=== PATIENT | female | born 1980 | race Caucasian/White ===

== ENCOUNTER 2016-10-19 19:13 | Observation (INO) | payer MEDICAID ==
[~2016-10-19] VITALS: Ht 165.1 cm; Wt 64.4 kg
[2016-10-19] MEDS ORDERED: MULT-1146 PO (20:11)
[2016-10-19 21:05] LABS: CLARITY URINE CLEAR (CLEAR); COLOR URINE YELLOW (YELLOW); GLUCOSE URINE NEGATIVE (NEGATIVE); KETONES URINE NEGATIVE (NEGATIVE); LEUKOCYTE ESTERASE URINE NEGATIVE (NEGATIVE); NITRITE URINE NEGATIVE (NEGATIVE); OCCULT BLOOD URINE NEGATIVE (NEGATIVE); PH URINE 7.5 (4.5-8.0); PROTEIN URINE NEGATIVE (NEGATIVE); SPECIFIC GRAVITY URINE 1.011 (1.005-1.030)
[2016-10-19] MEDS ORDERED: ACETAMINOPHEN 500MG TABLET PO ONE (22:00)
== END 2016-10-19 22:30 | disposition home or self-care (01) ==
LOC: L&D 19:13
PROVIDERS: ADMIT Specialist; ATTEND Specialist
DX: O9A.212 Injury, poisoning and certain other consequences of external causes complicating pregnancy, second trimester (principal); S50.312A Abrasion of left elbow, initial encounter; S50.311A Abrasion of right elbow, initial encounter; O26.892 Other specified pregnancy related conditions, second trimester; R52 Pain, unspecified; Z3A.23 23 weeks gestation of pregnancy; Y08.89XA Assault by other specified means, initial encounter; Y93.01 Activity, walking, marching and hiking; Y92.89 Other specified places as the place of occurrence of the external cause; Y99.8 Other external cause status
CPT/HCPCS: 76805; 81003; 99281; G0378

== ENCOUNTER 2017-02-18 06:50 | Inpatient (IN) | payer MEDICAID ==
[~2017-02-18] VITALS: Ht 165.1 cm; Wt 69.4 kg
[~2017-02-18 06:50] MED LIST: MULT-1146 PO
[2017-02-18] MEDS ORDERED: OXYTOCIN IV SCH (07:07)
[2017-02-18] MEDS ORDERED: LACTATED RINGERS 1,000 ML IV SCH ×2 (07:07→07:08)
[2017-02-18] MEDS ORDERED: LACTATED RINGERS IV SCH (07:07)
[2017-02-18] MEDS ORDERED: DEXT 5%/LR + PITOCIN 20UNITS/L 1,000 ML IV SCH ×2 (07:08→10:21)
[2017-02-18] MEDS ORDERED: MISOPROSTOL 100MCG TABLET VG SCH (07:15)
[2017-02-18] MEDS ORDERED: MISOPROSTOL 100MCG TABLET VG PRN (07:15)
[2017-02-18] MEDS ORDERED: BUTORPHANOL TARTRATE 2 MG/ML VIAL IV PRN ×2 (07:15)
[2017-02-18] MEDS ORDERED: METHYLERGONOVINE MALEATE 0.2 MG/ML IM PRN ×3 (07:15→10:30)
[2017-02-18] MEDS ORDERED: LIDOCAINE HCL 1% 20ML VIAL (Pyxis) INJ INFIL SCH ×2 (07:15)
[2017-02-18] MEDS ORDERED: NALOXONE HCL 0.4 MG/ML 1ML VIAL IM PRN ×2 (07:15)
[2017-02-18] MEDS ORDERED: CARBOPROST TROMETHAMINE 250 MCG/ML AMPUL IM PRN (07:15)
[2017-02-18] MEDS ORDERED: PENICILLIN G POTASSIUM 5 MMU in DEXT 5% WATER 100 ML IV SCH (07:30)
[2017-02-18 07:45] LABS: BASOPHILS % 0.3 % (0.0-2.0); EOSINOPHILS % 0.6 % (0.0-5.0); HEMATOCRIT. 33.5 % (36.0-48.0); HEMOGLOBIN. 10.9 g/dL (12.0-16.0); LYMPHOCYTES % 9.2 % (20.0-50.0); MEAN CORPUSCULAR HEMOGLOBIN 25.2 pg (28.0-32.0); MEAN CORPUSCULAR VOLUME 77.5 fL (81.0-99.0); MEAN PLATELET VOLUME 10.7 fl (7.4-10.4); MONOCYTES % 7.1 % (2.0-8.0); NEUTROPHILS % 82.8 % (40.0-76.0); PLATELET 87 x1000/uL (130-400); RED BLOOD CELL COUNT 4.32 mill/uL (4.2-5.4); RED CELL DISTRIBUTION WIDTH 16.7 % (11.6-14.6)
[2017-02-18 07:47] LABS: INR 0.9; PARTIAL THROMBOPLASTIN TIME 30.1 sec (23.4-31.0); PROTHROMBIN TIME 9.8 sec (9.4-11.6)
[2017-02-18 08:14] LABS: HEPATITIS B SURFACE ANTIGEN NEGATIVE; RUBELLA IGG 62.4 IU/mL (4.99-10)
[2017-02-18 08:15] LABS: GLUCOSE URINE NEGATIVE (NEGATIVE); KETONES URINE NEGATIVE (NEGATIVE); LEUKOCYTE ESTERASE URINE NEGATIVE (NEGATIVE); NITRITE URINE NEGATIVE (NEGATIVE); OCCULT BLOOD URINE NEGATIVE (NEGATIVE); PH URINE 6.5 (4.5-8.0); PROTEIN URINE NEGATIVE (NEGATIVE); SPECIFIC GRAVITY URINE 1.011 (1.005-1.030); UROBILINOGEN URINE 0.2 E.U./dL (0.2-1.0)
[2017-02-18 08:17] LABS: CLARITY URINE CLEAR (CLEAR); COLOR URINE YELLOW (YELLOW)
[2017-02-18 08:44] LABS: *AMPHETAMINES SCREEN URINE NEGATIVE (NEGATIVE); *BARBITURATES SCREEN URINE NEGATIVE (NEGATIVE); *BENZODIAZEPINES SCREEN URINE NEGATIVE (NEGATIVE); *COCAINE SCREEN URINE NEGATIVE (NEGATIVE); CANNABINOID URINE SCREEN NEGATIVE (NEGATIVE); METHADONE URINE SCREEN NEGATIVE (NEGATIVE); OPIATES URINE SCREEN NEGATIVE (NEGATIVE); PHENCYCLIDINE URINE SCREEN NEGATIVE (NEGATIVE)
[2017-02-18] MEDS ORDERED: IBUPROFEN 400MG TABLET PO PRN (10:30)
[2017-02-18] MEDS ORDERED: RHO(D) IMMUNE GLOBULIN 300 MCG/SYR IM PRN (10:30)
[2017-02-18] MEDS ORDERED: LANOLIN OINT 0.25 GM TUBE TOP PRN (10:30)
[2017-02-18 11:25] VITALS: BP 108/52
[2017-02-18] MEDS ORDERED: PENICILLIN G POTASSIUM 2.5 MMU in DEXTROSE 5% WATER 50 ML IV SCH (11:30)
[2017-02-18] MEDS: IBUPROFEN 800MG TABLET PO PRN ×2 (11:31→18:01)
[2017-02-18 11:55] VITALS: BP 114/50
[2017-02-18 12:34] LABS: HEMATOCRIT. 31.5 % (36.0-48.0); HEMOGLOBIN. 10.1 g/dL (12.0-16.0); MEAN CORPUSCULAR HEMOGLOBIN 25.2 pg (28.0-32.0); MEAN CORPUSCULAR VOLUME 78.2 fL (81.0-99.0); MEAN PLATELET VOLUME 10.9 fl (7.4-10.4); PLATELET 91 x1000/uL (130-400); RED BLOOD CELL COUNT 4.02 mill/uL (4.2-5.4); RED CELL DISTRIBUTION WIDTH 16.3 % (11.6-14.6)
[2017-02-18 13:37] LABS: PLATELET ESTIMATE DECREASED
[2017-02-18] MEDS ORDERED: INFLUENZA VIRUS VACCINE 0.5ML SYR IM ONE (20:00)
[2017-02-18 21:30] VITALS: BP 117/69
[2017-02-18] MEDS: DOCUSATE SODIUM 100MG CAPSULE PO SCH (22:35)
[2017-02-19 05:30] VITALS: BP 109/69
[2017-02-19 07:57] VITALS: BP 110/62
[2017-02-19] MEDS: PRENATAL VIT/FE FUMARATE/FA TABLET PO SCH (08:06)
[2017-02-19] MEDS: IBUPROFEN 800MG TABLET PO PRN ×2 (08:06→20:43)
[2017-02-19 16:05] VITALS: BP 94/52
[2017-02-19] MEDS ORDERED: TETANUS, DIPHTHERIA, PERTUSSIS VAC/PF 0.5ML (>7YR OLD) IM ONE (18:30)
[2017-02-19] MEDS ORDERED: INFLUENZA VIRUS VACCINE 0.5ML SYR IM ONE (18:30)
[2017-02-19 20:00] VITALS: BP 119/73
[2017-02-19] MEDS: DOCUSATE SODIUM 100MG CAPSULE PO SCH (20:17)
[2017-02-20 06:13] VITALS: BP 107/64
[2017-02-20 07:33] LABS: HEMATOCRIT 28.3 % (36.0-48.0); HEMOGLOBIN 9.3 g/dL (12.0-16.0); MEAN CORPUSCULAR HEMOGLOBIN 25.4 pg (28.0-32.0); MEAN CORPUSCULAR VOLUME 77.6 fL (81.0-99.0); PLATELET 117 x1000/uL (130-400); RED BLOOD CELL COUNT 3.65 mill/uL (4.2-5.4)
[2017-02-20 08:00] VITALS: BP 110/68
[2017-02-20] MEDS: PRENATAL VIT/FE FUMARATE/FA TABLET PO SCH (08:36)
[2017-02-20 10:59] VITALS: BP 110/68
== END 2017-02-20 15:20 | disposition home or self-care (01) | DRG 560 ==
LOC: L&D 06:50 → OBSVTOIN 06:50 → 7EST PP/OB 11:11
PROVIDERS: ADMIT Specialist; ATTEND Specialist
PROC: 10E0XZZ Delivery of Products of Conception, External Approach (ICD-10-PCS; principal; 2017-02-18 08:05)
DX: O99.02 Anemia complicating childbirth (principal); D62 Acute posthemorrhagic anemia; D69.6 Thrombocytopenia, unspecified; D72.829 Elevated white blood cell count, unspecified; O99.12 Other diseases of the blood and blood-forming organs and certain disorders involving the immune mechanism complicating childbirth; Z37.0 Single live birth; Z3A.39 39 weeks gestation of pregnancy; O09.523 Supervision of elderly multigravida, third trimester
CPT/HCPCS: 36415; 80305; 81003; 85025; 85027; 85610; 85730; 86592; 86703; 86762; 86850; 86900; 87340; 90686; 90715; J2540; J2590; J7060; J7120